=== PATIENT | male | born 1950 ===

== ENCOUNTER 2017-05-23 08:39 | Day surgery (SDC) | payer BC, MEDICARE ==
[2017-05-23] MEDS ORDERED: Lactated Ringer's 500 ML IV ONE (09:24)
[2017-05-23 09:26] VITALS: TEMP 96.7
[2017-05-23] MEDS ORDERED: Propofol 10 mg/ml Inj (20 ML) ONE (10:00)
[2017-05-23] MEDS ORDERED: Lidocaine PF 2% (5 ml) Inj (For Cardiac Arrhy) IV ONE (10:00)
[2017-05-23 10:36] VITALS: PULSE 60; RESP 15; O2SAT 100
[2017-05-23 10:45] VITALS: BP 109/67
== END 2017-05-23 10:57 | disposition home or self-care (01) ==
LOC: H.ENDO 08:39
PROVIDERS: ATTEND Internal Medicine Gastroenterology
DX: Z12.11 Encounter for screening for malignant neoplasm of colon (principal); D12.0 Benign neoplasm of cecum; K57.30 Diverticulosis of large intestine without perforation or abscess without bleeding; K64.8 Other hemorrhoids; I10 Essential (primary) hypertension; E11.9 Type 2 diabetes mellitus without complications; E03.9 Hypothyroidism, unspecified; Z79.84 Long term (current) use of oral hypoglycemic drugs
CPT/HCPCS: 45380; 82948; 88305; J2704; J7120